=== PATIENT | female | born 1980 | race Caucasian/White ===

== ENCOUNTER 2020-05-02 07:16 | Emergency (ER) | payer BC ==
[~2020-05-02] VITALS: Ht 162.6 cm; Wt 104.1 kg
[2020-05-02 07:19] VITALS: BP 149/70
[2020-05-02] MEDS ORDERED: LIDOCAINE-MPF 1%, 2ML ONE (07:42)
[2020-05-02] MEDS ORDERED: OXYcodone/APAP 5/325MG TABLET ONE (07:43)
[2020-05-02] MEDS ORDERED: LIDOCAINE-MPF 1%, 5ML INFIL ONE (08:00)
[2020-05-02] MEDS ORDERED: OXYcodone/APAP 5/325MG TABLET PO ONE (08:00)
--- NOTE | 2020-05-02 08:27 | NUR ---
PA AT BEDSIDE FOR I&D AT THIS TIME.
--- NOTE | 2020-05-02 09:29 | NUR ---
DISCHARGE INSTRUCTIONS REVIEWED WITH PT. ALL QUESTIONS ANSWERED AT THIS TIME.
== END 2020-05-02 09:32 | disposition home or self-care (01) ==
LOC: ED 09:00
DX: L02.211 Cutaneous abscess of abdominal wall (principal); F17.200 Nicotine dependence, unspecified, uncomplicated; Z90.49 Acquired absence of other specified parts of digestive tract; Z88.6 Allergy status to analgesic agent
CPT/HCPCS: 10060; 87070; 87077; 87205; 99284

== ENCOUNTER → 2020-09-15 | Outpatient (CLI) | payer BC | END | disposition home or self-care (01) | LOC: CFH 14:14 | PROVIDERS: ATTEND Emergency Medicine | DX: R10.12 Left upper quadrant pain (principal) | CPT/HCPCS: 76705 ==